=== PATIENT | male | born 1940 | race Caucasian/White ===

== ENCOUNTER 2023-11-15 14:24 | Emergency (ER) | payer MEDICARE ==
[2023-11-15 14:35] VITALS: RESP 18
--- NOTE | 2023-11-15 14:36 | ED ---
Wound/Laceration HPI - General Chief Complaint: Wound/Laceration Stated Complaint: left hand injury Time Seen by Provider: 11/15/23 14:36 Source: patient, RN notes reviewed Mode of arrival: ambulatory Limitations: no limitations - History of Present Illness Initial Comments: 83-year-old male presents emergency department chief complaint of left hand four th digit laceration. Patient states he was working in his basement this afternoon with a table wood saw when part of a piece of wood bounced back and hit his left hand. He denies any numbness or tingling to the left upper extremity and hand. Patient states that his most recent tetanus shot was over a year ago. Is not on any blood thinners. denies other acute symptoms. - Related Data Home Medications Medication Instructions Recorded Confirmed Lisinopril [Prinivil] 5 mg PO DAILY 07/26/16 07/26/16 Rosuvastatin Calcium [Crestor] 5 mg PO DAILY 07/26/16 07/26/16 Previous Rx's Medication Instructions Recorded HYDROcodone/APAP 5-325MG [[place] 1 tab PO Q6HR PRN #20 tab 07/26/16 5-325] Naproxen [Naprosyn] 250 mg PO BID #30 tab 07/26/16 Ondansetron HCl [Zofran] 4 mg PO Q8HR #30 tab 07/26/16 Tamsulosin HCl [Flomax] 0.4 mg PO DAILY #30 cap 07/26/16 cefaDROXiL [Duricef] 1 gm PO DAILY #3 tablet 11/15/23 Allergies Allergy/AdvReac Type Severity Reaction Status Date / Time Sulfa (Sulfonamide Allergy Unknown Verified 11/15/23 14:34 Antibiotics) Review of Systems ROS Statement: Those systems with pertinent positive or pertinent negative responses have been documented in the HPI. ROS Other: All systems not noted in ROS Statement are negative. Past Medical History Past Medical History: Hyperlipidemia, Hypertension Additional Past Medical History / Comment(s): kidney stones History of Any Multi-Drug Resistant Organisms: None Reported Past Surgical History: Hernia Repair, Tonsillectomy Additional Past Surgical History / Comment(s): lithotripsy Past Psychological History: No Psychological Hx Reported Smoking Status: Never smoker Past Alcohol Use History: None Reported Past Drug Use History: None Reported General Exam Limitations: no limitations General appearance: alert, in no apparent distress Head exam: Present: atraumatic, normocephalic, normal inspection Eye exam: Present: normal appearance, PERRL, EOMI. Absent: scleral icterus, conjunctival injection, periorbital swelling ENT exam: Present: normal exam, mucous membranes moist Neck exam: Present: normal inspection. Absent: tenderness, meningismus, lymphadenopathy Respiratory exam: Present: normal lung sounds bilaterally. Absent: respiratory distress, wheezes, rales, rhonchi, stridor Cardiovascular Exam: Present: regular rate, normal rhythm, normal heart sounds. Absent: systolic murmur, diastolic murmur, rubs, gallop, clicks GI/Abdominal exam: Present: soft, normal bowel sounds. Absent: distended, tenderness, guarding, rebound, rigid Left Hand Wrist exam: Present: laceration, deformity, other (Fourth digit distal laceration involving the nailbed). Absent: dislocation Neuro motor exam: Present: wrist extension intact, thumb opposition intact Vascular: Present: normal capillary refill. Absent: vascular compromise Back exam: Present: normal inspection Neurological exam: Present: alert, oriented X3, CN II-XII intact Psychiatric exam: Present: normal affect, normal mood Skin exam: Present: warm, dry, intact, normal color. Absent: rash Course Vital Signs 11/15/23 11/15/23 14:27 16:29 Temperature 98 F 98 F Pulse Rate 65 78 Respiratory 18 18 Rate Blood Pressure 134/75 139/71 O2 Sat by Pulse 98 100 Oximetry Procedures - Orthopedic Splinting/Casting Injury #1 Side: left Upper Extremity Injury Location: hand Upper Extremity Immobilizer: finger (other) (4th digit irrigated with betadyne and sterlie water, bacitracin placed on laceration, surgifoam overtop, placed in finger splint) Medical Decision Making - Medical Decision Making Was pt. sent in by a medical professional or institution (, PA, DIRECTOR COMPENSATION, urgent care, hospital, or detention...) When possible be specific @ -No Did you speak to anyone other than the patient for history (EMS, parent, family, police, friend...)? What history was obtained from this source @ -No Did you review nursing and triage notes (agree or disagree)? Why? @ -I reviewed and agree with nursing and triage notes Were old charts reviewed (outside hosp., previous admission, EMS record, old EKG, old radiological studies, urgent care reports/EKG's, detention records)? Report findings @ -No old charts were reviewed Differential Diagnosis (chest pain, altered mental status, abdominal pain women, abdominal pain men, vaginal bleeding, weakness, fever, dyspnea, syncope, headache, dizziness, GI bleed, back pain, seizure, CVA, palpatations, mental health, musculoskeletal)? @ -laceration, finger avlusion, foreign body in soft tissue, fracture of metacarpal EKG interpreted by me (3pts min.). @ -none X-rays interpreted by me (1pt min.). @ -open displaced fracture of the distal fourth phalanx. CT interpreted by me (1pt min.). @ -None done U/S interpreted by me (1pt. min.). @ -None done What testing was considered but not performed or refused? (CT, X-rays, U/S, labs)? Why? @ -None What meds were considered but not given or refused? Why? @ -None Did you discuss the management of the patient with other professionals (professionals i.e. , PA, DIRECTOR COMPENSATION, lab, RT, psych nurse, social services specialist, greens or grounds superintendent, teacher, aoc plans intelligence officer, case monitor)? Give summary @ -Discussed patient's case with on-call orthopedic team, requested that patient's finger would be thoroughly irrigated and placed in a splint. Patient to follow-up with orthopedic hand specialist tomorrow morning for further intervention. And is discharged with oral antibiotics. Was smoking cessation discussed for >3mins.? @ -No Was critical care preformed (if so, how long)? @ -No Were there social determinants of health that impacted care today? How? (Homelessness, low income, unemployed, alcoholism, drug addiction, transportation, low edu. Level, literacy, decrease access to med. care, long-term, rehab)? @ -No Was there de-escalation of care discussed even if they declined (Discuss DNR or withdrawal of care, Hospice)? DNR status @ -No What co-morbidities impacted this encounter? (DM, HTN, Smoking, COPD, CAD, Cancer, CVA, ARF, Chemo, Hep., AIDS, mental health diagnosis, sleep apnea, morbid obesity)? @ -None Was patient admitted / discharged? Hospital course, mention meds given and route, prescriptions, significant lab abnormalities, going to OR and other pertinent info. @ -83 year old male with chief complaint of left hand 4th digit finger laceration. xray of left hand reveals open fracture. Patient was given IM dose of Dilaudid for pain management. official read of left hand complete x-ray reveals open displaced fracture of the distal fourth phalanx. Given 2 g dose of IV Ancef. Discussed patient's case with on-call orthopedic team, requested that patient's finger to be thoroughly irrigated and placed in a splint. Patient to follow-up with orthopedic hand specialist tomorrow morning for further intervention, And is discharged with oral antibiotics. Undiagnosed new problem with uncertain prognosis? @ -No Drug Therapy requiring intensive monitoring for toxicity (Heparin, Nitro, Insulin, Cardizem)? @ -No Were any procedures done? @ -digital block performed wtih 1% lidocaine over the 4th left digit. irrigation of 4th distal left phalynx with betadine and sterlie water. bacitracian placed on distal finger tip, omnifoam placed over and finger splinted. Diagnosis/symptom? @ -Open fracture, finger laceration Acute, or Chronic, or Acute on Chronic? @ -Acute Uncomplicated (without systemic symptoms) or Complicated (systemic symptoms)? @ -Uncomplicated Side effects of treatment? @ -No Exacerbation, Progression, or Severe Exacerbation? @ -No Poses a threat to life or bodily function? How? (Chest pain, [place], [place], pneumonia, PE, COPD, DKA, ARF, appy, cholecystitis, CVA, Diverticulitis, Homicidal, Suicidal, threat to staff... and all critical care pts) @ -No Disposition Clinical Impression: Laceration, Open fracture Narrative: Please return to the Emergency Department if symptoms worsen or any other concerns. Patient to follow-up with hand surgeon tomorrow for further evaluation. Disposition: HOME SELF-CARE Condition: Good Prescriptions: cefaDROXiL [Duricef] 1 gm PO DAILY #3 tablet Is patient prescribed a controlled substance at d/c from ED?: No Referrals: Seth Arechiga MD [Primary Care Provider] - 1-2 days Kobi Garcia DO [Doctor of Osteopathic Medicine] - 1-2 days Time of Disposition: 16:32
[2023-11-15] MEDS: HYDROmorphone 1 MG/ML 1 ML SYRINGE IM STA (14:44)
--- NOTE | 2023-11-15 15:07 | XR ---
EXAMINATION TYPE: XR hand complete LT DATE OF EXAM: 11/15/2023 2:59 PM CLINICAL INDICATION:Male, 83 years old with history of injury; [facility] COMPARISON: None TECHNIQUE: Frontal, lateral and oblique views of the left hand were obtained. FINDINGS: Acute injury with fracture of the distal phalanx of the fourth digit. There is overlying so ft tissue irregularity most consistent with laceration. Small osseous fragment is seen displaced from the distal phalanx. The remaining osseous structures are intact. Mineralization is within normal pedersen its. IMPRESSION: Open displaced fracture of the distal fourth phalanx.
[2023-11-15] MEDS: LIDOCAINE 1% INJ 10MG/ML (20 ML MDV) SQ ONE (15:54)
[2023-11-15] MEDS: BACITRACIN OINT 1 EACH PACKET TOPICAL ONE (16:03)
[2023-11-15] MEDS: ACET/COD 300 MG/30 MG STARTER PACK 6 TAB BTL PO STA (16:36)
[2023-11-15 16:48] VITALS: BP 139/71; PULSE 78; TEMP 98.1
== END 2023-11-15 16:41 | disposition home or self-care (01) ==
LOC: EC 14:24
DX: S62.607B Fracture of unspecified phalanx of left little finger, initial encounter for open fracture (principal); I10 Essential (primary) hypertension; E78.5 Hyperlipidemia, unspecified; Z88.2 Allergy status to sulfonamides; Z79.899 Other long term (current) drug therapy; W22.8XXA Striking against or struck by other objects, initial encounter
CPT/HCPCS: 73130; 99283; 96365; 96372; J0690; J2001; J1170

== ENCOUNTER 2023-11-18 12:48 | Day surgery (SDC) | payer MEDICARE ==
--- NOTE | 2023-11-16 14:19 | P.HPOR ---
History of Present Illness H&P Date: 11/16/23 Subjective: This is a 83 year old male that presents today for initial evaluation regarding a left ring finger injury that occurred on 11/15/2023 when he was cutting a long piece of wood on a table saw and the tablesaw got jammed causing the block to get thrown back and hit the tip of his finger. He was seen at the ED where his wound was irrigated and a soft dressing and finger splint was applied. Physical Examination: LUE: AIN/PIN/Radial/Ulnar/Median motor intact. Radial/Ulnar/Median SILT. 2+/4 Radial/Ulnar pulses palpated. 5/5 APB, 5/5 FDI. Negative Finkelsteins, negative CMC grind, negative Durkan's compression. 3cm open laceration to tip of ring finger with large split of the sterile matrix portion of the nailbed with liftoff of the nail plate. Imaging: X-Rays of the left hand 3v taken in the ED were reviewed and demonstrate a minimally displaced 4th digit distal phalanx tuft fracture. Impression: 1.) Left ring finger open distal tuft fracture 2.) Left ring finger nailbed laceration Plan: Diagnosis and treatment options were discussed with the patient. His laceration was not repaired in the ED and requires further intervention with left ring finger 3cm complex laceration repair with nailbed laceration repair under local anesthetic only with no sedation. Risks and benefits of surgery including bleeding, infection, damage to surrounding tissue, need for further surgery, residual numbness were discussed and the patient wished to go forward with surgery. The patient was agreeable with this plan, new dressing was applied which can stay on until his surgery date. CC: Seth Arechiga MD -Kobi Garcia DO Orthopedic Hand/Upper Extremity Surgeon Past Medical History Past Medical History: Hyperlipidemia, Hypertension Additional Past Medical History / Comment(s): kidney stones History of Any Multi-Drug Resistant Organisms: None Reported Past Surgical History: Hernia Repair, Tonsillectomy Additional Past Surgical History / Comment(s): lithotripsy Past Psychological History: No Psychological Hx Reported Smoking Status: Never smoker Past Alcohol Use History: None Reported Past Drug Use History: None Reported Medications and Allergies Home Medications Medication Instructions Recorded Confirmed Type HYDROcodone/APAP 5-325MG [[place] 1 tab PO Q6HR PRN #20 tab 07/26/16 Rx 5-325] Lisinopril [Prinivil] 5 mg PO DAILY 07/26/16 07/26/16 History Naproxen [Naprosyn] 250 mg PO BID #30 tab 07/26/16 Rx Ondansetron HCl [Zofran] 4 mg PO Q8HR #30 tab 07/26/16 Rx Rosuvastatin Calcium [Crestor] 5 mg PO DAILY 07/26/16 07/26/16 History Tamsulosin HCl [Flomax] 0.4 mg PO DAILY #30 cap 07/26/16 Rx cefaDROXiL [Duricef] 1 gm PO DAILY #3 tablet 11/15/23 Rx Allergies Allergy/AdvReac Type Severity Reaction Status Date / Time Sulfa (Sulfonamide Allergy Unknown Verified 11/15/23 14:34 Antibiotics) Physical Examination Osteopathic Statement: *. No significant issues noted on an osteopathic structural exam other than those noted in the History and Physical/Consult.
[~2023-11-18 12:48] MED LIST: DEXAMETHASONE SOD PHOSPHATE 4 MG/ML 1 ML VIAL IV ONE; HYDROmorphone 0.5 MG/0.5 ML SYRINGE IVP PRN; LACTATED RINGERS 1,000 ML IV SCH; ONDANSETRON 4 MG/2 ML VIAL IVP ONE
[2023-11-18 13:59] VITALS: RESP 16; TEMP 97.3
[2023-11-18] MEDS: BACITRACIN ZINC 500 UNIT/GM OINT 28.4 GM TUBE TOPICAL ONE (14:18)
[2023-11-18 15:11] VITALS: BP 146/74
[2023-11-18 15:12] VITALS: PULSE 56
--- NOTE | 2023-11-18 16:56 | P.OP ---
Date of Procedure: 11/18/23 Preoperative Diagnosis: 1.) Left ring finger open distal phalanx fracture 2.) Left ring finger nailbed laceration Postoperative Diagnosis: 1.) Left ring finger open distal phalanx fracture 2.) Left ring finger nailbed laceration Procedure(s) Performed: 1.) Open reduction without fixation of left ring finger open distal phalanx fracture 2.) Left ring finger nailbed laceration repair 3.) Left ring finger 1cm laceration repair 4.) Left ring finger nail plate removal Anesthesia: local Surgeon: Kobi Garcia Online Marketer #1: Bebo Edwards Estimated Blood Loss (ml): 0 Pathology: none sent Condition: stable Disposition: PACU Description of Procedure: This is a 83 year old male who sustained a table saw injury to his left ring finger and presents today for surgical intervention. Risks and benefits of surgery were discussed with the patient including bleeding, damage to surrounding tissue, infection, need for further surgery as well as risks of anesthesia including pulmonary embolism and even and the patient wished to proceed with surgical intervention. The patient was seen in the pre-operative area by myself. Consent and H&P were completed and updated. The correct extremity was marked in the pre-operative area by myself and all other questions were answered. Operative Narrative: The patient was brought to the operating room. They remained on the portable stretcher and a rolling hand table was brought to the side of the operative extremity. Pre-operative time out was performed indicating the correct patient, procedure and laterality. All in the room agreed. Pre-operative antibiotics were given prior to skin incision. Digital block was performed with 8cc's of 0.5% Lidocaine and 1% lidocaine in a 50:50 mixture. The hand was then prepped and draped in normal sterile fashion. [place] tourniquet was applied to the digit with a hemostat. Attention was drawn to the tip of the ring finger. There appear to be an open distal phalanx fracture with a large oblique split through the sterile matrix of the nail bed. There was also a 1 cm extension of the laceration into the volar pulp. The nail plate was still intact to the displaced nail bed laceration. Purdys elevator and a needle warehouse associate driver was used to atraumatically remove the nail plate. After nail plate removal was performed the wound was thoroughly irrigated with sterile saline. There was a small portion of the distal phalanx bone left in the ulnar flap of the volar pulp, this was indirectly reduced the the distal phalanx base by performing skin to skin closure with 4-0 chromic suture. The remainder of the laceration was closed with interrupted chromic simple sutures. Attention was then drawn to the nail bed. Several interrupted 5-0 Vicryl sutures were used to perform a nail bed laceration repair. There was now a level scaffold for the new nail plate to grow over. The wound was then irrigated and a piece of aluminum was cut from the foil of the suture packet and this was contoured in the shape of a nail and placed underneath the eponychial fold. Sterile dressing with bacitracin, adaptic, 4x4s and lucio was applied. [place] tourniquet was released. The patient was then woken by the department of anesthesia and transferred to PACU in stable condition. Kobi Garcia D.O. Orthopedic Hand/Upper Extremity Surgeon
== END 2023-11-18 15:12 | disposition home or self-care (01) ==
LOC: OR 12:48
PROVIDERS: ATTEND Orthopaedic Surgery Hand Surgery
DX: S62.635B Displaced fracture of distal phalanx of left ring finger, initial encounter for open fracture (principal); E78.5 Hyperlipidemia, unspecified; I10 Essential (primary) hypertension; Z88.1 Allergy status to other antibiotic agents; Z79.899 Other long term (current) drug therapy; Z88.2 Allergy status to sulfonamides; X58.XXXA Exposure to other specified factors, initial encounter